=== PATIENT | male | born 1950 | race Caucasian/White ===

== ENCOUNTER 2019-04-12 13:27 | Inpatient (IN) | payer BC, MEDICARE ==
[~2019-04-12] VITALS: Ht 170.2 cm; Wt 86.2 kg
--- NOTE | 2019-04-12 13:28 | NUR ---
[id number] C/O THROAT DISCOMFORT, DIFFICULTY BREATHING 15 MINS MACHINE LEAD BURNER, BG 82 MACHINE LEAD BURNER, CAREGIVER CONCERNED ABOUT SEIZURE. TO ER BED 8, PT AOx3, HOOKED TO MONITOR, CHANGED TO GOWN, PROVIDED W WARM BLANKET, SEIZURE PRECAUTIONS APPLIED, AWAITING MD RIVERA.
--- NOTE | 2019-04-12 15:02 | NUR ---
DR AUSTIN AT BEDSIDE
--- NOTE | 2019-04-12 15:06 | NUR ---
PT HAVING SEIZURES. PLACED ON O2 VIA NC AT 2LPM, SEIZURE PRECAUTIONS IN PLACE. MD MADE AWARE AND HAVE SEEN PATIENT, RECEIVED VERBAL ORDER OF ATIVAN 2MG IM. CARRIED OUT
[2019-04-12] MEDS ORDERED: LORAZEPAM INJ 2 MG/ML VIAL ONE ×2 (15:07→16:04)
[2019-04-12 15:29] LABS: BASOPHILS # (AUTO) 0.1 /CMM (0.0-0.2); EOSINOPHILS % (AUTO) 3.4 % (0.0-6.0); HEMATOCRIT 40 % (39-51); HEMOGLOBIN 13.2 g/dL (13.5-17.5); LYMPHOCYTES # (AUTO) 1.1 /CMM (0.8-4.8); LYMPHOCYTES % (AUTO) 17.6 % (20.0-44.0); MEAN CORPUSCULAR HGB CONC 33 g/dl (31.0-36.0); MEAN CORPUSCULAR VOLUME 85 fL (80-96); MONOCYTES # (AUTO) 0.6 /CMM (0.1-1.30); MONOCYTES % (AUTO) 9.1 % (2.0-12.0); NEUTROPHILS # (AUTO) 4.5 /CMM (1.8-8.9); NEUTROPHILS % (AUTO) 68.9 % (43.0-81.0); PLATELET COUNT (AUTO) 191 /CMM (150-450); RED BLOOD CELL COUNT(AUTO) 4.74 MIL/uL (4.5-6.0); WHITE BLOOD COUNT (AUTO) 6.5 K/uL (4.3-11.0)
[2019-04-12] MEDS ORDERED: ALBUTEROL FS 2.5 MG/3 ML VIAL.NEB NEB ONE (15:30)
[2019-04-12] MEDS ORDERED: LORAZEPAM INJ 2 MG/ML VIAL IM ONE (15:30)
[2019-04-12] MEDS ORDERED: IPRATROPIUM NEB FS 0.5 MG/2.5 ML AMPUL.NEB NEB ONE (15:30)
[2019-04-12] MEDS ORDERED: LEVETIRACETAM (500MG) 1,000 MG in IV NS 0.9% 100 ML IV SCH (15:30)
--- NOTE | 2019-04-12 15:36 | NUR ---
WHEELED OUT VIA RNEY FOR CT SCAN
[2019-04-12 15:38] LABS: CALCIUM, SERUM 9.2 mg/dL (8.5-10.1); CARBON DIOXIDE 26 mmol/L (21-32); CHLORIDE 104 mmol/L (98-107); CREATININE 1.8 mg/dL (0.6-1.3); GLUCOSE 138 mg/dL (74-106); SODIUM SERUM 138 mmol/L (136-145); UREA NITROGEN, BLOOD 29 mg/dL (7-18)
[2019-04-12] MEDS ORDERED: IPRATROPIUM NEB FS 0.5 MG/2.5 ML AMPUL.NEB ONE (15:38)
[2019-04-12] MEDS ORDERED: ALBUTEROL FS 2.5 MG/3 ML VIAL.NEB ONE (15:38)
[2019-04-12 15:44] LABS: ALANINE AMINOTRANSFERASE 26 U/L (12-78); ALBUMIN 3.3 g/dL (3.4-5.0); ALKALINE PHOSPHATASE 79 U/L (46-116); ASPARTATE AMINOTRANSFERASE 15 U/L (15-37); BILIRUBIN,DIRECT 0.1 mg/dL (0.0-0.2); BILIRUBIN,TOTAL 0.4 mg/dL (0.2-1.0); TOTAL PROTEIN, SERUM 7.1 g/dL (6.4-8.2)
--- NOTE | 2019-04-12 15:55 | NUR ---
RT AT BEDSIDE, STARTED W BREATHING TX
--- NOTE | 2019-04-12 16:07 | NUR ---
CAREGIVER INFORMED NURSE THAT PT IS HAVING ANOTHER SEIZURE, MADE DR AUSTIN AWARE, WENT AND SAW PATIENT. PT NOT RESPONSIVE TO PAINFUL STIMULI, VITAL SIGNES WERE STABLE. SEIZURE PRECAUTIONS IN PLACE, RECEIVED VERBAL ORDER FROM DR AUSTIN OF ATIVAN 1MG IV, CARRIED OUT
[2019-04-12] MEDS ORDERED: LORAZEPAM INJ 2 MG/ML VIAL IV ONE (16:30)
--- NOTE | 2019-04-12 16:58 | NUR ---
CALLED [facility], PAGED EDDIE PEREZ
--- NOTE | 2019-04-12 16:59 | NUR ---
URINE SAMPLE SENT TO LAB
[2019-04-12 17:04] LABS: APPEARANCE,URINE Clear (CLEAR); BILIRUBIN,URINE Negative (NEGATIVE); BLOOD, URINE Negative Ery/uL (NEGATIVE); COLOR,URINE Yellow (YELLOW); KETONES,URINE Negative (NEGATIVE); LEUKOCYTE ESTERASE ,URINE Negative (NEGATIVE); NITRITE, URINE Negative (NEGATIVE); PH,URINE 5.5 (5.0-8.0); PROTEIN,URINE 30 mg/dl (NEGATIVE); UGLUCOSE Negative (NEGATIVE); UROBILINOGEN,URINE 0.2 EU/dL (0.2)
[2019-04-12] MEDS ORDERED: ALBUTEROL FS 2.5 MG/3 ML VIAL.NEB NEB PRN (18:00)
[2019-04-12] MEDS ORDERED: ZOLPIDEM TARTRATE 5 MG TABLET PO PRN (18:00)
[2019-04-12] MEDS ORDERED: MAGNESIUM HYDROXIDE 30 ML UDC PO PRN (18:00)
[2019-04-12] MEDS ORDERED: ONDANSETRON HCL/PF 4 MG/2 ML VIAL IVP PRN (18:00)
[2019-04-12] MEDS ORDERED: Z GUARD REMEDY 2 OZ OINT TP PRN (18:00)
[2019-04-12] MEDS ORDERED: IPRATROPIUM NEB FS 0.5 MG/2.5 ML AMPUL.NEB NEB PRN (18:00)
[2019-04-12] MEDS ORDERED: ACETAMINOPHEN 325 MG TABLET PO PRN (18:00)
[2019-04-12] MEDS ORDERED: MAG HYDROX/AL HYDROX/SIMETH 30 ML UDC PO PRN (18:00)
--- NOTE | 2019-04-12 18:04 | NUR ---
REPORT GIVEN TO FRANCK RECINOS OF TELE UNIT
[2019-04-12] MEDS ORDERED: ESCI20TA PO (18:08)
[2019-04-12] MEDS ORDERED: MEMA10TA PO (18:08)
[2019-04-12] MEDS ORDERED: ASCO10007 PO (18:08)
[2019-04-12] MEDS ORDERED: INSU100I4 SQ (18:08)
[2019-04-12] MEDS ORDERED: MULT-1121 PO (18:08)
[2019-04-12] MEDS ORDERED: TRAZ-182 PO (18:08)
[2019-04-12] MEDS ORDERED: KETO15CR2 TP (18:08)
[2019-04-12] MEDS ORDERED: METO25TA6 PO (18:08)
[2019-04-12] MEDS ORDERED: METF-442 PO (18:08)
[2019-04-12] MEDS ORDERED: BUTA-247 PO (18:08)
[2019-04-12] MEDS ORDERED: KETO120S6 TP (18:08)
[2019-04-12] MEDS ORDERED: HYDR410O TP (18:08)
[2019-04-12] MEDS ORDERED: FLUO60SO3 TP (18:08)
[2019-04-12] MEDS ORDERED: RIVA10TA PO (18:08)
[2019-04-12] MEDS ORDERED: ALFU10TA10 PO (18:08)
[2019-04-12] MEDS ORDERED: GABA-534 PO (18:08)
[2019-04-12] MEDS ORDERED: MYRBETRIQ PO (18:08)
[2019-04-12] MEDS ORDERED: INSU100V7 SQ (18:08)
[2019-04-12] MEDS ORDERED: SUCR1TAB PO (18:08)
[2019-04-12] MEDS ORDERED: DRON400T2 PO (18:08)
[2019-04-12] MEDS ORDERED: ALBU6.7H IH (18:08)
[2019-04-12] MEDS ORDERED: HYDR-4354 PO (18:08)
[2019-04-12] MEDS ORDERED: LAMO150T PO (18:08)
[2019-04-12] MEDS ORDERED: AMLO5TAB9 PO (18:08)
--- NOTE | 2019-04-12 18:46 | NUR ---
TRANSFERRED PT TO TELE UNIT
[2019-04-12] MEDS ORDERED: BUTALB/APAP/CAFFEINE 1 EACH TABLET PO PRN (19:30)
[2019-04-12 20:00] VITALS: BP 142/61
[2019-04-12] MEDS: HYDROCODONE/APAP 5/325MG 1 EACH TABLET PO PRN (21:01)
[2019-04-12] MEDS: RIVAROXABAN 10 MG TABLET PO SCH (21:03)
[2019-04-12 22:08] LABS: BACTERIA,URINE Few /HPF (None Seen); RBC,URINE 0-2 /HPF (0-2); SQUAMOUS EPITHELIAL CELL,UR Few /HPF (None Seen); WBC,URINE 0-2 /HPF (0-3)
[2019-04-13] VITALS (13 sets, daily range): BP systolic 106–150; BP diastolic 59–92
[2019-04-13] MEDS ORDERED: DEXTROSE 50%-WATER 50 ML DISP.SYRIN IV PRN
[2019-04-13] MEDS: LEVETIRACETAM (500MG) 1,000 MG in IV NS 0.9% 100 ML IV SCH ×2 (04:25→16:10)
[2019-04-13] MEDS: BLOOD SUGAR DIAGNOSTIC 1 EACH STRIP IN SCH ×4 (06:21→23:28)
[2019-04-13] MEDS: HYDROCODONE/APAP 5/325MG 1 EACH TABLET PO PRN ×2 (06:21→10:58)
--- NOTE | 2019-04-13 06:37 | NUR ---
PROMOTIONAL REPRESENTATIVE NOTES AWAKE & RESPONSIVE. NOT IN ANY DISTRESS. NO SOB NOTED. DENIES ANY PAIN OR DISCOMFORT AT THIS TIME. WITH IV-HL PATENT & INTACT. MONITORED ACCORDINGLY. CALL LIGHT WITHIN REACH. BED IN LOWEST POSITION. SR UP X 3 FOR SAFETY. KEPT ON SEIZURE PREC AAT. WILL ENDORSE TO NEXT SHIFT. Addendum: 04/13/19 at 0641 by EM DON RN ON TELE AV PACING @ 73
[2019-04-13 06:57] LABS: BASOPHILS % (AUTO) 0.8 % (0.0-2.0); EOSINOPHILS % (AUTO) 3.6 % (0.0-6.0); HEMATOCRIT 39 % (39-51); HEMOGLOBIN 12.8 g/dL (13.5-17.5); LYMPHOCYTES # (AUTO) 1.6 /CMM (0.8-4.8); LYMPHOCYTES % (AUTO) 29.9 % (20.0-44.0); MEAN CORPUSCULAR HGB CONC 33 g/dl (31.0-36.0); MEAN CORPUSCULAR VOLUME 85 fL (80-96); MONOCYTES # (AUTO) 0.5 /CMM (0.1-1.30); MONOCYTES % (AUTO) 10.4 % (2.0-12.0); NEUTROPHILS # (AUTO) 2.9 /CMM (1.8-8.9); NEUTROPHILS % (AUTO) 55.3 % (43.0-81.0); PLATELET COUNT (AUTO) 182 /CMM (150-450); RED BLOOD CELL COUNT(AUTO) 4.63 MIL/uL (4.5-6.0); WHITE BLOOD COUNT (AUTO) 5.3 K/uL (4.3-11.0)
[2019-04-13 07:18] LABS: THYROID STIMULATING HORMONE 1.02 uIU/mL (0.358-3.74)
[2019-04-13 07:21] LABS: CALCIUM, SERUM 8.8 mg/dL (8.5-10.1); CREATININE 1.7 mg/dL (0.6-1.3); MAGNESIUM 1.8 mg/dL (1.8-2.4); PHOSPHORUS 4.6 mg/dL (2.5-4.9); POTASSIUM 4.6 mmol/L (3.5-5.1)
--- NOTE | 2019-04-13 08:00 | NUR ---
Tele/RN - Assessment Patient in bed awake, A/O x 3, forgetful at times, tele shows SR/AV pacing, denies pain, not in any form of distress, no seizure activity overnight per endorsement. Saline lock on the right hand is patent, intact, with no signs of infiltration. Labs reviewed no critical results noted. Fall, seizure and aspiration precautions maintained. Patient updated on plan of care. Will continue with current medical management.
[2019-04-13] MEDS: DRONEDARONE HYDROCHLORIDE 400 MG TABLET PO SCH ×2 (08:16→17:59)
[2019-04-13] MEDS: MEMANTINE HCL 5 MG TABLET PO SCH (08:16)
[2019-04-13] MEDS: LamoTRIgine 100 MG TABLET PO SCH ×2 (08:16→17:59)
[2019-04-13] MEDS: METOPROLOL TARTRATE 25 MG TABLET PO SCH ×2 (08:17→18:09)
[2019-04-13] MEDS: ESCITALOPRAM OXALATE (10 MG) 10 MG TABLET PO SCH (08:17)
--- NOTE | 2019-04-13 08:55 | NUR ---
Tele/RN - ST Eval Seen and examined by speech therapist. Patient exhibited a seizure like activity during solid trials and c/o choking. Patient was able to clear airway without forceful maneuver. ST with recommendation to change diet to finely chopped for precautions and needs supervision during oral intake.
[2019-04-13] MEDS ORDERED: GABAPENTIN 300 MG CAPSULE PO SCH (09:00)
[2019-04-13] MEDS ORDERED: AMLODIPINE BESYLATE 5 MG TABLET PO SCH (09:00)
--- NOTE | 2019-04-13 09:10 | NUR ---
Tele/RN - Seizure activity Patient noted with seizure activity which lasted for 2 mins. Patient is A/O x 2 post seizure, no c/o weakness, denies pain at this time, asked if he knew that he just had a seizure, stated he can't recall anything, reality orientation provided, vital signs monitored BP 121/64 MD 71 tele AV pacing SpO2 on 4lpm via NC 98%. Continue with seizure, aspiration and fall precautions. Pending neuro consult. Will continue to monitor closely.
--- NOTE | 2019-04-13 09:15 | NUR ---
Tele/RN - Notes Patient refused Ativan to be given.
--- NOTE | 2019-04-13 10:00 | NUR ---
Tele/RN - Notes Telemetry monitoring was discontinued by Dr. Dawkins.
[2019-04-13] MEDS ORDERED: ROPI0.5T PO ×2 (12:36)
[2019-04-13] MEDS: ALFUZOSIN 10 MG PO SCH (13:55)
[2019-04-13] MEDS: GABAPENTIN 300 MG CAPSULE PO SCH ×2 (13:56→17:59)
--- NOTE | 2019-04-13 14:30 | NUR ---
MS/RN - Hospitalist carol Seen and examined by Dr. Choudhury, made aware of seizure activity and choking episodes with order to administer D5NS at 75 ml/hr, aspiration precautions, NPO except meds. at bedside aware.
[2019-04-13] MEDS: IV D5/ 0.9% NACL 1,000 ML IV PRN (14:47)
[2019-04-13] MEDS: LORAZEPAM INJ 2 MG/ML VIAL IV PRN (15:05)
--- NOTE | 2019-04-13 15:05 | NUR ---
MS/RN - Seizure activity Patient noted with seizure activity which lasted for 2 mins. Patient is A/O x 2 post seizure, no c/o weakness, denies pain at this time, reality orientation provided, vital signs monitored BP 102/48 [place] 70 SpO2 on 3lpm via NC 96%. Administered Ativan 2 mg IVP as ordered. Will continue to monitor closely. at bedside.
--- NOTE | 2019-04-13 16:25 | NUR ---
MS/RN - Neuro consult Seen and examined by Dr. Arrieta. Md made aware of seizure episodes x 3 lasting for about 2 mins each time, last dose of Ativan 2 mg IVP was given post seizure activity was 15:05 today. Per Md, transfer patient to ICU for close monitoring of respiratory status, administer Ativan 1 mg IVP once and give additional dose of Keppra 500 mg IVPB now. Charge nurse and nursing sintering plant supervisor made aware, awaiting for ICU bed.
[2019-04-13] MEDS ORDERED: LORAZEPAM INJ 2 MG/ML VIAL IV ONE (16:30)
--- NOTE | 2019-04-13 16:45 | NUR ---
MS/RN - ICU transfer Patient in no acute distress, awake, lethargic, BP 114/57, AL 70, RR 18, SpO2 on 3lpm via NC 97%, tele shows AV pacing 70s. Transferred to ICU Rm. 254 via ACLS protocol. All belongings sent. Report given to GRISEL Downing for continuity of care.
--- NOTE | 2019-04-13 16:50 | NUR ---
PATIENT RECEIVED FROM [facility] PER DR MICHAEL ORDER TO MONITOR RESPIRATORY STATUS. PATIENT IS AWAKE AND TRACKING, ASKING WHERE HE IS, FOLLOWING SIMPLE COMMANDS AND LETHARGIC. PER REPORT PATIENT HAS HAD EPISODES OF SEIZURE ACTIVITY TODAY. DR MICHAEL AT BEDSIDE AND PER MD GIVE 1MG ATIVAN IVP NOW. NO SEIZURE ACTIVITY NOTED AT THIS TIME. SEIZURE PRECAUTIONS IN PLACE. SKIN, SAFETY, ASPIRATION PRECAUTIONS IN PLACE AND WILL MONITOR
[2019-04-13] MEDS ORDERED: LEVETIRACETAM (500MG) 500 MG in IV NS 0.9% 100 ML IV ONE ×4 (17:00)
--- NOTE | 2019-04-13 17:00 | NUR ---
MS/RN - Clarification of Keppra order Spoke with Dr. Arrieta regarding Keppra order. Patient was on Keppra 1000 mg IVPB Q12H (04:00 and 16:00). Per Md, continue to give the additional dose of Keppra 500 mg once to complete 1500 mg dose that was administered 04/13/19 at 1610 then change Keppra to 1500 mg IVPB Q12H. Pharmacist made aware of order.
--- NOTE | 2019-04-13 17:37 | NUR ---
PATIENT IS MORE ALERT A/OX2 STILL LETHARGIC, FOLLOWING COMMANDS. ABLE TO COMMUNICATE HIS NAME, , WHO HE LIVES WITH AND STATED HE IS AWARE HE IS IN THE HOSPITAL
[2019-04-13] MEDS: RIVAROXABAN 10 MG TABLET PO SCH (17:59)
--- NOTE | 2019-04-13 18:13 | NUR ---
TOLERATED PO MEDICATIONS WITHOUT DIFFICULTY. PATIENT STATES UNABLE TO URINATE AND AT HOME USES CATHETERS TO ASSIST WITH URINATION. PATIENT ABD FIRM AND STATES HE HAS NOT URINATED IN MANY HOURS. MESSAGE TO DATA ENTRY REPRESENTATIVE TO F/U
--- NOTE | 2019-04-13 18:32 | NUR ---
PER EDDIE INSERT INDWELLING MAR CATH FOR RETENTION
--- NOTE | 2019-04-13 18:33 | NUR ---
MAR CATH INSERTED STERILE PROCEDURE APPLIED. PATIENT HAD 600ML URINE OUTPUT INSTANTLY. CLEAR YELLOW. NO COMPLICATIONS NOTED
--- NOTE | 2019-04-13 19:05 | NUR ---
CARE ENDORSED TO MARY RECINOS FOR LEROY. PATIENT RESTING COMFORTABLY. A.OX2 STILL LETHARGIC HOWEVER AWAKES BY NAME AND FOLLOWING COMMANDS. UNDERSTANDING ON CONCEPTS. MAR CATH TO GRAVITY. LOW FLOW NC TOLERATED WITHOUT SOB, DIFFICULTY BREATHING OR PAIN AND NO S/S DISTRESS. SEIZURE PRECAUTIONS IN PLACE AND CALLED [employer] FOR BED RAIL PADDING. TELE AV PACING. BP STABLE. ALL NEEDS IN REACH.
--- NOTE | 2019-04-13 20:00 | NUR ---
RN INITIAL NOTES RECEIVED PATIENT RESTING IN BED. A.OX2 . MAR CATH TO GRAVITY. PT ON 2L NC . SEIZURE PRECAUTIONS IN PLACE . TELE AV PACING. BED ALARM ON . IV FLUIDS INFUSING ORDERED. WILL CONT TO MONITOR.
[2019-04-13] MEDS ORDERED: LEVETIRACETAM (500MG) 1,000 MG in IV NS 0.9% 100 ML IV SCH (21:00)
[2019-04-13] MEDS: INSULIN REGULAR, HUMAN 100 UNIT/ML 3 ML VIAL SQ PRN (23:31)
[2019-04-14] VITALS (30 sets, daily range): BP systolic 82–157; BP diastolic 46–92
[2019-04-14] MEDS: HYDROCODONE/APAP 5/325MG 1 EACH TABLET PO PRN (01:51)
[2019-04-14] MEDS: LORAZEPAM INJ 2 MG/ML VIAL IV PRN ×3 (01:58→21:02)
--- NOTE | 2019-04-14 02:00 | NUR ---
RN NOTES AT 0155 PT HAD A GENERALIZED SEIZURE THAT LASTED ABOUT 4MIN. ATIVAN 2MG WAS ADMINISTERED. PT KEPT SAFE.
[2019-04-14 04:14] LABS: BASOPHILS # (AUTO) 0.1 /CMM (0.0-0.2); BASOPHILS % (AUTO) 0.8 % (0.0-2.0); EOSINOPHILS % (AUTO) 3.9 % (0.0-6.0); HEMATOCRIT 39 % (39-51); HEMOGLOBIN 12.6 g/dL (13.5-17.5); LYMPHOCYTES # (AUTO) 1.3 /CMM (0.8-4.8); LYMPHOCYTES % (AUTO) 20.7 % (20.0-44.0); MEAN CORPUSCULAR HGB CONC 33 g/dl (31.0-36.0); MEAN CORPUSCULAR VOLUME 86 fL (80-96); MONOCYTES # (AUTO) 0.5 /CMM (0.1-1.30); MONOCYTES % (AUTO) 8.6 % (2.0-12.0); NEUTROPHILS # (AUTO) 4.1 /CMM (1.8-8.9); PLATELET COUNT (AUTO) 182 /CMM (150-450); RED BLOOD CELL COUNT(AUTO) 4.52 MIL/uL (4.5-6.0); WHITE BLOOD COUNT (AUTO) 6.2 K/uL (4.3-11.0)
[2019-04-14 04:29] LABS: CALCIUM, SERUM 8.3 mg/dL (8.5-10.1); CREATININE 1.8 mg/dL (0.6-1.3); MAGNESIUM 1.8 mg/dL (1.8-2.4); POTASSIUM 5.1 mmol/L (3.5-5.1)
[2019-04-14] MEDS: IV D5/ 0.9% NACL 1,000 ML IV PRN ×2 (04:35→16:09)
[2019-04-14] MEDS ORDERED: LEVETIRACETAM (500MG) 1,500 MG in IV NS 0.9% 100 ML IV SCH ×2 (05:00→21:30)
[2019-04-14] MEDS: BLOOD SUGAR DIAGNOSTIC 1 EACH STRIP IN SCH ×4 (07:59→21:12)
[2019-04-14] MEDS: DRONEDARONE HYDROCHLORIDE 400 MG TABLET PO SCH ×2 (09:29→17:28)
[2019-04-14] MEDS: ESCITALOPRAM OXALATE (10 MG) 10 MG TABLET PO SCH (09:30)
[2019-04-14] MEDS: GABAPENTIN 300 MG CAPSULE PO SCH ×3 (09:30→17:27)
[2019-04-14] MEDS: LamoTRIgine 100 MG TABLET PO SCH ×2 (09:30→17:27)
[2019-04-14] MEDS: MEMANTINE HCL 5 MG TABLET PO SCH (09:30)
[2019-04-14] MEDS: METOPROLOL TARTRATE 25 MG TABLET PO SCH ×2 (09:31→17:28)
--- NOTE | 2019-04-14 09:44 | NUR ---
RN NOTES 0730-RECEIVED PATIENT FROM RN. PATIENT SLEEPING, NO SIGN OF PAIN. 0930-PATIENT STARTED TO WAKE UP, UNABLE TO STATE WHERE HE IS, FOLLOWS SIMPLE COMMANDS.DR MICHAEL NOTIFIED OF LAB STATUS.PATIENT TOLERATED MEDS, ASPIRATION PRECAUTIONS OBSERVED. ANSWERS CALLS FROM HIS PHONE.PATIENT WANTED IFC OUT, REMOVED SAFELY PATIENT WANTED, NO BLEED NOTED.URINAL PROVIDED AND INSTRUCTED HIM TO USE IT WHEN NEEDING TO VOID.
--- NOTE | 2019-04-14 10:33 | NUR ---
RN NOTES 1030-PATIENT VOIDED ABOUT 50 ML.WANTS TO "GO HOME" . HIS CALLED AND INFORMED HER OF PATIENT STATUS, SHE STATED GAUTAM PATIENT HAS BEEN DEPRESSED, CRIES TIME TO TIME, ALSO HAS HX OF SEIZURES.MONITOR PATIENT
--- NOTE | 2019-04-14 13:03 | NUR ---
RN NOTES 1200-PATIENT ASSISTED BACK TO BED FROM COMMODE HE DID NOT WANT TO USE BEDPAN OFFERED, PATIENT STARTED TO GET "LIMP" UNRESPONSIVE TI VOICE, PLACED ANGI TO BED SAFELY.BP-130/68; HR-75, SATS 96% ON NASAL CANNULA, GLUCOSE-127, PATIENT BREATHING EVEN, UNLABORED, DR QUIROGA, DR MICHAEL NOTIFIED. STAT CT ORDERED. 1220-PATIENT STARTED TO HAVE SEIZURES ABOUT 2 MINUTES DURATION, ATIVAN ADMINISTERED ORDERED. 1230-PATIENT TO CT SACN , ACLS PROTOCOL UTILIZED, PATIENT STARTED TO WAKE UP, FOLLOW SIMPLE COMMANDS. 1300-BACK TO ROOM, MONITOR STATUS.
--- NOTE | 2019-04-14 13:52 | NUR ---
RN NOTES PATIENT AWAKE, CONFUSED AT TIMES. SPOKE TO HIS , INFORMED HER OF PATIENT SATTUS. WHEN ASEKD HER, SHE STATED THAT HE HAS SEIZURE EPISODES AT HOME, IT TAKES ABOUT 10 MINUTES AT TIMES WHEN HE "WAKES UP".
[2019-04-14] MEDS: ALFUZOSIN 10 MG PO SCH (14:04)
--- NOTE | 2019-04-14 16:35 | NUR ---
rn notes PATIENT VISITED, UPDATED HER OF PATIENT STATUS. EEG DONE, DR MICHAEL WAS NOTIFIED. DR MICHAEL CAEM RTO EVALUATE PATIENT, REPORT GIVEN TO HIM, HE SAID HE SPOKE TO PATIENT . PATIENT UNDERGOING ECHO THSI TIME
--- NOTE | 2019-04-14 18:11 | NUR ---
RN NOTES 1750-PATIENT EATING, ASPIRATION PRECAUTIONS OBSERVED.HE STARTED TO GET UNRESPONSIVE, BP-129/72, HR-72, SATS-97% ON 3LPM/NC. PATIENT AWARE. PATIENT STARTED TO FOLLOW 1 SIMPLE COMMAND AFTER ABOUT 5 MINUTES. SAFETY MAINTAINED.
--- NOTE | 2019-04-14 20:00 | NUR ---
RN INITIAL NOTES RECEIVED PATIENT IN BED. A& OX1, CONFUSED AND COMBATIVE. ORIENTED PT. VSS. IV IN PLACE IN R WRIST AND R THUMB. PTS AV PACING ON MONITOR. SEIZURE PRECAUTIONS TAKEN. ALL SAFETY PRECAUTIONS IN PLACE. BED IN LOW LOCKED IN POSITION. WILL CONT TO MONITOR.
--- NOTE | 2019-04-14 20:30 | NUR ---
RN NOTES. PT BECAME MORE CONFUSED AND COMBATIVE.
--- NOTE | 2019-04-14 20:48 | NUR ---
RN NOTES PT HAD A SEIZURE. WILL CONT TO MONITOR.
[2019-04-14] MEDS ORDERED: LEVETIRACETAM (250 MG) 250 MG TABLET PO SCH (21:00)
--- NOTE | 2019-04-14 21:02 | NUR ---
RN NOTES PT CONT TO BE CONFUSED AND COMBATIVE, CODE PRAKASH CALLED, ATIVAN ADMINISTERED PRN, JUDY WRIST APPLIED. 4 SECURITY PERSONAL AT BED SIDE, WILL CONT TO MONITOR CLOSELY.
[2019-04-14] MEDS ORDERED: LEVETIRACETAM (500MG) 500 MG/5 ML VIAL IV ONE ×2 (21:29→21:32)
[2019-04-14] MEDS: LEVETIRACETAM (500MG) 1,500 MG in IV NS 0.9% 100 ML IV SCH (21:41)
--- NOTE | 2019-04-14 21:41 | NUR ---
RN NOTES CALLED DR QUIROGA, [facility] PTS TRANSFER NOT ORDERED. ORDER RECEIVED AND CARRIED OUT. MADE AWARE PT IS VERY COMBATIVE AND CONFUSED. ORDER ZYPREXIA 5MG IM, GIVEN ORDERED. WILL CONT CLOSE MONITORING.
[2019-04-14] MEDS ORDERED: OLANZAPINE 10 MG VIAL IM ONE (22:00)
--- NOTE | 2019-04-14 22:00 | NUR ---
RN NOTES 1:1 SITTER AT BEDSIDE.
--- NOTE | 2019-04-14 23:05 | NUR ---
Paramedics here to take patient to [facility].
--- NOTE | 2019-04-14 23:10 | NUR ---
Patient report is in being given to ERIC RN,Sadaf reno.Patient is in on bilateral soft wrist restraints. Per RN cannot accept this patient in ER[facility] malt[facility] milk.
--- NOTE | 2019-04-14 23:20 | NUR ---
Spoke with Edi Tube Mounter,Cindi in [facility] regarding patient transfer.Made aware that patient is in restraints.According to her patient only admitted to ICU if patient on restraints.And wants to talk to John Boogie Concrete Mixer Loader Truck Mounted.
--- NOTE | 2019-04-14 23:55 | NUR ---
Cindi,[facility] distilling department supervisor called she said she will decline to accept this patient for they don't have available ICU BED.
[2019-04-15] VITALS (26 sets, daily range): BP systolic 102–150; BP diastolic 53–87
--- NOTE | 2019-04-15 | NUR ---
notified unable to transfer patient to [facility].Made him aware that patient with restraint cannot be admitted to ERIC only to ICU.Per Associate Professor Of Theatre Cindi in [facility] they don't have bed available in ICU this time so she decline to accept this patient. Addendum: 04/15/19 at 0041 by HIREN MARIE RN ordered to cancel transfer and to continue monitoring patient.
--- NOTE | 2019-04-15 | NUR ---
Paramedics went home.
--- NOTE | 2019-04-15 00:07 | NUR ---
LEENA ,navigating officer @ [facility] called regarding patient maybe transferred to [facility] tomorrow. Made her aware that just cancelled transfer order.
--- NOTE | 2019-04-15 04:05 | NUR ---
Received call from [facility] patient Blood culture gram positive cocci in clusters (Aerobic Bottle) relayed to .No new orders received.Also made aware patient had 6 runs of V-tach.Patient asymptomatic.Denies chest pain or sob.VSS. Addendum: 04/15/19 at 0519 by HIREN MARIE RN Please note :Above notes wrong entry belongs to another patient.
[2019-04-15] MEDS: BLOOD SUGAR DIAGNOSTIC 1 EACH STRIP IN SCH ×4 (08:33→21:11)
[2019-04-15] MEDS: ASPIRIN EC 81 MG TABLET.DR PO SCH ×2 (08:48→10:51)
[2019-04-15] MEDS: DRONEDARONE HYDROCHLORIDE 400 MG TABLET PO SCH ×3 (08:48→18:15)
[2019-04-15] MEDS: GABAPENTIN 300 MG CAPSULE PO SCH ×4 (08:48→18:14)
[2019-04-15] MEDS: ALFUZOSIN 10 MG PO SCH ×2 (08:48→10:51)
[2019-04-15] MEDS: MEMANTINE HCL 5 MG TABLET PO SCH ×2 (08:48→10:51)
[2019-04-15] MEDS: LamoTRIgine 100 MG TABLET PO SCH ×3 (08:48→18:15)
[2019-04-15] MEDS: METOPROLOL TARTRATE 25 MG TABLET PO SCH ×3 (08:48→18:14)
[2019-04-15] MEDS: LEVETIRACETAM (500MG) 1,500 MG in IV NS 0.9% 100 ML IV SCH ×3 (08:49→21:10)
[2019-04-15] MEDS: ESCITALOPRAM OXALATE (10 MG) 10 MG TABLET PO SCH ×2 (08:49→10:51)
--- NOTE | 2019-04-15 09:46 | NUR ---
RN NOTE 0715: Received patient asleep. VSS at this time. With PIV intact, IVF infusing as ordered. With 1:1 sitter for episode of impulsiveness per previous shift, will continue to monitor. 98% on 3 LPM, placed on 2 LPM O2 via NC. Will monitor. 0800: Patient still too drowsy at this time. Able to be aroused but goes back to sleep every one question. 0940: AM meds still on hold secondary to risk for aspiration. Still unable to tolerate being awake for a while.
--- NOTE | 2019-04-15 10:10 | NUR ---
RN NOTE S/E by Dr. Louie, patient still too lethargic, abl;e to arouse easily but goes back to sleeping right away. He spoke to Dr. Arrieta with order to increase Lamictal to 200mg q12 from 150mg. MD verbalized patient may be downgraded to ERIC, CN aware.
[2019-04-15] MEDS: IV D5/ 0.9% NACL 1,000 ML IV PRN (11:15)
[2019-04-15] MEDS: INSULIN REGULAR, HUMAN 100 UNIT/ML 3 ML VIAL SQ PRN (12:32)
--- NOTE | 2019-04-15 13:22 | NUR ---
RN NOTE 1300: Patient on chair eating lunch, suddenly he coughed and with episode of total KO for about 15 minutes. Supported patient's body to prevent sliding down the chair. Patient has no response even to painful stimuli. Noted with PERRLA. VSS 110/63, pulse 82, resp 17, noted with snoring, 95% on 2LPM of O2 via NC. Woke up after 15 minutes and asking "Where am I?", reoriented patient and forgot that he asked the question again in the morning. 1303: Informed Dr. Louie re: the episode and he plans to transfer patient to higher level of care possibly [facility]. 1320: Melanie from [facility] called and transferred call to case management social worker Marge.
--- NOTE | 2019-04-15 17:10 | NUR ---
RN NOTE 1700: With episode of acting up, got out of bed and insisting to go to regular restroom, explained the risks of going to bathroom or even just getting out of bed because of the episodes of passing out for minutes and unable to arouse. Offered bedpan or commode at least but patient does not want. Patient still impulsive and insisting to get out of the room. Called security and was able to place him back to bed. Jamesn called his (on the way) and he became calm. 1710: at bedside, discussed re: the plan of care. Awaiting bed availability to other hospital per Marge OSEGUERA.
--- NOTE | 2019-04-15 19:00 | NUR ---
RN NOTE With episode of non compliant, wanting to get out of the room and go walk around. at bedside, explained that he needs to be in the monitor all the time for episodes of seizure and KO and risk for fall. Called security and tried to explain to patient. Patient informed that he is also with allergies to Dilaudid and Keppra. Made patient aware that he received Keppra doses already. Patient does not know any reactions with it. Informed MD, waiting for reply. Endorsed to next shift.
--- NOTE | 2019-04-15 20:00 | NUR ---
RN INITIAL NOTE Received patient asleep. VSS at this time. With PIV intact, IVF infusing as ordered. With 1:1 sitter for episode of impulsiveness per previous shift, will continue to monitor. 98% on , placed on 2 LPM O2 via NC, able to tolerate rm air, calm at this time. Will cont' to monitor.
[2019-04-16] VITALS (25 sets, daily range): BP systolic 112–165; BP diastolic 49–87
[2019-04-16] MEDS: IV D5/ 0.9% NACL 1,000 ML IV PRN ×2 (03:50→21:41)
[2019-04-16 04:42] LABS: BASOPHILS % (AUTO) 0.6 % (0.0-2.0); EOSINOPHILS % (AUTO) 4.4 % (0.0-6.0); HEMATOCRIT 37 % (39-51); HEMOGLOBIN 12.2 g/dL (13.5-17.5); LYMPHOCYTES # (AUTO) 1.3 /CMM (0.8-4.8); LYMPHOCYTES % (AUTO) 23.5 % (20.0-44.0); MEAN CORPUSCULAR HGB CONC 33 g/dl (31.0-36.0); MEAN CORPUSCULAR VOLUME 86 fL (80-96); MONOCYTES # (AUTO) 0.5 /CMM (0.1-1.30); MONOCYTES % (AUTO) 8.1 % (2.0-12.0); NEUTROPHILS # (AUTO) 3.6 /CMM (1.8-8.9); NEUTROPHILS % (AUTO) 63.4 % (43.0-81.0); PLATELET COUNT (AUTO) 166 /CMM (150-450); RED BLOOD CELL COUNT(AUTO) 4.28 MIL/uL (4.5-6.0); WHITE BLOOD COUNT (AUTO) 5.7 K/uL (4.3-11.0)
[2019-04-16 04:55] LABS: CALCIUM, SERUM 8.3 mg/dL (8.5-10.1); CREATININE 1.8 mg/dL (0.6-1.3); MAGNESIUM 1.8 mg/dL (1.8-2.4); POTASSIUM 4.2 mmol/L (3.5-5.1)
--- NOTE | 2019-04-16 06:27 | NUR ---
RN CLOSING NOTE ENDORSED PT FOR TRANSFER [place] [facility] [place] [facility] FAXED, WILL ENDORSE TO AM RN TO F/U.
--- NOTE | 2019-04-16 07:13 | NUR ---
RN NOTE Previous nurse gave Keppra dose last night despite of patient verbalizing he has allergy to it. Patient unable to verbalize the reaction he gets. Previous RN said he spoke with garland Han to give Keppra since he already received doses this admission and no reactions for now and will follow up with neuro today. Made pharmacy aware
[2019-04-16] MEDS: MEMANTINE HCL 5 MG TABLET PO SCH (08:18)
[2019-04-16] MEDS: METOPROLOL TARTRATE 25 MG TABLET PO SCH ×2 (08:18→17:32)
[2019-04-16] MEDS: ASPIRIN EC 81 MG TABLET.DR PO SCH (08:18)
[2019-04-16] MEDS: BLOOD SUGAR DIAGNOSTIC 1 EACH STRIP IN SCH ×4 (08:18→22:45)
[2019-04-16] MEDS: GABAPENTIN 300 MG CAPSULE PO SCH ×2 (08:18→12:14)
[2019-04-16] MEDS: LamoTRIgine 100 MG TABLET PO SCH ×2 (08:18→17:33)
[2019-04-16] MEDS: DRONEDARONE HYDROCHLORIDE 400 MG TABLET PO SCH ×2 (08:19→17:34)
[2019-04-16] MEDS: ESCITALOPRAM OXALATE (10 MG) 10 MG TABLET PO SCH (08:19)
[2019-04-16] MEDS: ALFUZOSIN 10 MG PO SCH (08:19)
[2019-04-16] MEDS: LEVETIRACETAM (500MG) 1,500 MG in IV NS 0.9% 100 ML IV SCH (08:23)
[2019-04-16] MEDS ORDERED: LAMO100T2 PO (11:00)
[2019-04-16] MEDS ORDERED: LEVE500T9 PO (11:00)
[2019-04-16] MEDS ORDERED: ASPI-1152 PO (11:00)
--- NOTE | 2019-04-16 12:09 | NUR ---
RN NOTE 1000: S/E by Dr. Louie and Sridhar PAPER FEEDER(neuro), made aware for patient was saying he has allergy to keppra, reaction unknown. No episode of seizure or passing out yet. Patient A/Ox4 but drowsy. Awaiting transfer to [facility]. 1200: Followed up with ANA ROSA Bird re: the transfer, still awaiting call from other hospital.
[2019-04-16] MEDS: INSULIN REGULAR, HUMAN 100 UNIT/ML 3 ML VIAL SQ PRN ×2 (12:13→22:58)
[2019-04-16] MEDS: HYDROCODONE/APAP 5/325MG 1 EACH TABLET PO PRN (12:25)
[2019-04-16] MEDS: LORAZEPAM INJ 2 MG/ML VIAL IV PRN ×3 (13:12→21:37)
--- NOTE | 2019-04-16 15:09 | NUR ---
RN NOTE Patient has episode of non compliance again, wanting to get out of the room. Insisting to walk around even advised that he needs to be on monitor all the time. While walking, with episode of passing out, able to assist patient to sit on the chair. Patient assisted to go to the bed, no response even to painful stimuli, VSS. Ativan given for KO episode, per [place] FURNITURE FABRICATOR, give Ativan even on KO episode. But patient still unresponsive. Made [place] FURNITURE FABRICATOR aware. Will continue to monitor.
--- NOTE | 2019-04-16 19:00 | NUR ---
AXLE BEARING POLISHER NOTE RECEIVED PATIENT IN DEEP SLEEP,NOT WAKING UP WITH VERBAL NOR TOUCH, BUT AWAKENS WHEN TURNED AND REPOSITIONED , VERBALLY RESPONSIVE, CAN NOT TELL WHERE HE IS, KNOWS HIS NAME BUT DOES NOT ANSWER ANY OTHER QUESTIONS OF ORIENTATION.DENIES ANY PAIN. ON A ONE TO ONE WATCH(SITTER) FOR SAFETY ISSUES DUE TO PATIENT GETTING OUT OF BED AND PATIENT IS HAVING OCCASIONAL SEIZURE AND PASSING OUT EPISODES.NOT IN ANY DISTRESS.DENIES ANY PAIN.COMFORT CARE DONE. PATIENT EASILY WENT BACK TO SLEEP(DEEP SLEEP), VITAL SIGNS STABLE.
--- NOTE | 2019-04-16 20:00 | NUR ---
PATIENT WOKE UP,AWAKE,ALERT,CONVERSES,WITH A LITTLE HOSTILE ATTITUDE, DOES NOT LISTEN, DOES WHATEVER HE WANTS TO DO. SITTTING AT EDGE OF THE BED EATING DINNER. 2030 REFUSING TO TAKE HIS MED(VIMPAT),STATES HE IS NOT TAKING THIS MEDICATION AND DOES NOT WANT TO TAKE A PILL THAT HE DOESN'T KNOW. 2100 STILL AWAKE,ALERT, BEEN CALLING AND TALKING AND TALKING TO THE .
[2019-04-16] MEDS: LACOSAMIDE 50 MG TABLET PO SCH ×2 (20:44→20:57)
[2019-04-16] MEDS: LEVETIRACETAM (250 MG) 250 MG TABLET PO SCH (20:45)
[2019-04-16] MEDS: ropiniROLE 0.5 MG TABLET PO SCH (20:45)
--- NOTE | 2019-04-16 21:15 | NUR ---
PATIENT GOT UP , TOOK OFF EKG LEADS,TOOK OFF HOSPITAL GOWN, DRESSED UP WITH CIVILIAN CLOTHES,STATES HE'S GOING HOME,VERY UPSET,GETTING COMBATIVE,EXTREMELY UNCOOPERATIVE. CODE PRAKASH WAS CALLED. 2129 SECURITY AND ORDERLIES ABLE TO GET HIM BACK TO BED. 2129 ATIVAN 2 MG GIVEN FOR AGITATION.HE STATES HE WANTS TO CALL HIS , 'S # WAS DIALED FOR HIM , SPOKE TO PATIENT AT LENGTH ( SOUNDED FRUSTRATED AND ANNOYED,AND TIRED,PATIENT HAS BEEN CALLING HER SINCE 1999) NOW PATIENT WANTS THE TO COME AND REFUSED TO COME AT THIS TIME). I SPOKE TO THE AND EXPLAINED THAT PATIENT TRIED TO WALK OUT AND WANTS TO GO HOME AND UNCOOPERATIVE. UNDERSTANDS AND TRIED TO TALK TO PATIENT AND CALM HIM DOWN. 2199 PATIENT FINALLY CALM DOWN.
[2019-04-17] VITALS (14 sets, daily range): BP systolic 128–151; BP diastolic 56–98
--- NOTE | 2019-04-17 | NUR ---
PATIENT STABLE,STILL SOMNOLENT FROM THE ATIVAN ,AROUSABLE,BUT GOES BACK TO SLEEP. NO SEIZURE ACTIVITY ALL NIGHT ,JUST THAT 1 TIME EPISODE OF AGITATION.
--- NOTE | 2019-04-17 04:00 | NUR ---
REMAINS CALM,ASLEEP MOST OF THE TIME BUT EASILY AWAKENS,FOLLOWS COMMANDS,COOPERATIVE. NO SEIZURE EPISODE. STILL WITH SITTER AT BEDSIDE.
--- NOTE | 2019-04-17 07:00 | NUR ---
REMAINS CALM,ASLEEP MOST OF THE TIME,EASILY AWAKENS, REMAINS COOPERATIVE.NO SEIZURE EPISODE ALL NIGHT.REPORT GIVEN TO DAYSHIFT GRISEL DEE.WITH SITTER AT BEDSIDE.
[2019-04-17] MEDS: LACOSAMIDE 50 MG TABLET PO SCH (09:00)
[2019-04-17] MEDS: BLOOD SUGAR DIAGNOSTIC 1 EACH STRIP IN SCH ×2 (09:10→11:54)
[2019-04-17] MEDS: INSULIN REGULAR, HUMAN 100 UNIT/ML 3 ML VIAL SQ PRN ×2 (09:11→11:57)
--- NOTE | 2019-04-17 10:11 | NUR ---
SCREENING UNIT REGISTERED NURSE NOTE RCVD PT SLEEPING WITH SITTER AT BEDSIDE FOR SAFETY. A-V PACED ON MONITOR, TOLERATING O2 VIA NASAL CANNULA. RN ATTEMPTED TO ADMINISTER AM MEDICATIONS TO PT AND PT WAS NOT WAKING UP DESPITE PAINFUL STIMULI. VITAL SIGNS STABLE. PUPILS EQUAL, REACTIVE TO LIGHT, 4, WILL CONTINUE TO MONITOR PT.
[2019-04-17] MEDS: ALFUZOSIN 10 MG PO SCH (10:21)
[2019-04-17] MEDS: METOPROLOL TARTRATE 25 MG TABLET PO SCH (10:22)
[2019-04-17] MEDS: ropiniROLE 0.5 MG TABLET PO SCH (10:22)
[2019-04-17] MEDS: ASPIRIN EC 81 MG TABLET.DR PO SCH (10:22)
[2019-04-17] MEDS: ESCITALOPRAM OXALATE (10 MG) 10 MG TABLET PO SCH (10:22)
[2019-04-17] MEDS: MEMANTINE HCL 5 MG TABLET PO SCH (10:22)
[2019-04-17] MEDS: LamoTRIgine 100 MG TABLET PO SCH (10:22)
[2019-04-17] MEDS: DRONEDARONE HYDROCHLORIDE 400 MG TABLET PO SCH (10:23)
[2019-04-17] MEDS: LEVETIRACETAM (250 MG) 250 MG TABLET PO SCH (11:54)
[2019-04-17] MEDS: IV D5/ 0.9% NACL 1,000 ML IV PRN (12:00)
--- NOTE | 2019-04-17 14:00 | NUR ---
ICU/RN: LACOSAMIDE 2 TAB WASTED WITH GRISEL DEE. UNABLE TO WASTE IN OMNICELL. DISCUSSED WITH ELEUTERIO CARO.
--- NOTE | 2019-04-17 14:01 | NUR ---
FUEL TANK SEALER AND TESTER NOTE PT LEFT AMA, PT'S SPOKE WITH DR. QUIROGA WHO'S AWARE OF PT'S WISHES TO LEAVE. UPON PT TRANSFERRING TO WHEELCHAIR PT FELL SLOWLY TO HIS KNEES AND LAID DOWN ON THE FLOOR. PT DID NOT HIT HIS HEAD. PT'S SITTER AND RN ATTEMPTED TO LIFT PT BACK INTO BED, PT REFUSED. PT WAS ASSISTED TO A SITTING POSITION ON FLOOR. PT ATTEMPTED TO STAND UP FROM A SITTING POSITION ON THE FLOOR AND WAS UNABLE, FALLING TO HIS KNEES AGAIN. PT'S AT PT'S SIDE WITNESSED ALL THIS ACTIVITY AND PT STILL WISHES TO LEAVE AMA. PER PT'S , SHE HAS NO SAY IN ANY OF THIS. DR. QUIROGA WAS CONTACTED AND MADE AWARE OF PT'S FALLS. CAT DRIVER WAS CALLED TO ASSIST IN LIFTING PT TO PLACE HIM INTO WHEELCHAIR. DR. ROBBINS IN UNIT PT WAS BEING WHEELED OUT OF ROOM. DR. ROBBINS MADE AWARE OF PT'S FALLS AND DECISION TO LEAVE AMA. AMA PAPERWORK SIGNED BY PT, COPIES IN CHART. IV SITES WERE DISCONTINUED WITH PRESSURE DRESSINGS IN PLACE. NO SIGNS OF BLEEDING WERE OBSERVED.
== END 2019-04-17 13:55 | disposition left against medical advice (07) | DRG 101 ==
LOC: ER 13:30 → TELE 17:23 → MED 04-13 10:02 → ICU 04-13 16:38
PROVIDERS: ADMIT Hospitalist; ATTEND Internal Medicine
DX: G40.901 Epilepsy, unspecified, not intractable, with status epilepticus (principal); N17.9 Acute kidney failure, unspecified; I48.91 Unspecified atrial fibrillation; I12.9 Hypertensive chronic kidney disease with stage 1 through stage 4 chronic kidney disease, or unspecified chronic kidney disease; J98.01 Acute bronchospasm; E11.22 Type 2 diabetes mellitus with diabetic chronic kidney disease; N18.2 Chronic kidney disease, stage 2 (mild); F32.9 Major depressive disorder, single episode, unspecified; N40.0 Benign prostatic hyperplasia without lower urinary tract symptoms; R13.10 Dysphagia, unspecified; Z95.0 Presence of cardiac pacemaker; Z90.5 Acquired absence of kidney; Z87.891 Personal history of nicotine dependence; Z85.528 Personal history of other malignant neoplasm of kidney; Z79.899 Other long term (current) drug therapy; Z79.4 Long term (current) use of insulin; Z79.01 Long term (current) use of anticoagulants; Z88.1 Allergy status to other antibiotic agents; Z88.0 Allergy status to penicillin; Z88.8 Allergy status to other drugs, medicaments and biological substances; Z91.018 Allergy to other foods; Z79.51 Long term (current) use of inhaled steroids; Z79.84 Long term (current) use of oral hypoglycemic drugs; Z91.14 Patient's other noncompliance with medication regimen
CPT/HCPCS: 36415; 70450-TC; 71045-TC; 73564-TC; 80048-TC; 80061-TC; 80076-TC; 80175; 80305; 81000-TC; 82962-TC; 83605-TC; 83735-TC; 84100-TC; 84443-TC; 84484-TC; 85025-TC; 85730-TC; 87040-TC; 87081-TC; 87086-TC; 92526; 92611-TC; 93307-TC; 93880-TC; 95819-TC; G0378; G0480; J1815; J1953; J2060; J3490; J7030; J7042; J7050